=== PATIENT | female | born 1935 | race Caucasian/White ===

== ENCOUNTER 2018-02-27 15:54 | Inpatient (IN) | payer MEDICARE, OTHER ==
[~2018-02-27] VITALS: Ht 154.9 cm; Wt 55.0 kg
[2018-02-27] MEDS ORDERED: normal saline 1000ML IV soln IVB ONE (16:20)
[2018-02-27 16:34] LABS: BASOPHILS # (AUTO) 0.1 X10'3 (0-0.2); BASOPHILS % (AUTO) 0.8 % (0-1); EOSINOPHILS # (AUTO) 0.1 X10'3 (0-0.9); HEMATOCRIT 32.5 % (35.0-45.0); HEMOGLOBIN 11.1 g/dl (12.0-16.0); LYMPHOCYTES # (AUTO) 1.4 X10'3 (1.1-4.8); LYMPHOCYTES % (AUTO) 13.1 % (21-51); MEAN CORPUSCULAR HEMOGLOBIN 31.6 PG (27.0-31.0); MEAN CORPUSCULAR HGB CONC 34.1 % (33.0-36.5); MEAN CORPUSCULAR VOLUME 92.6 FL (78-98); MEAN PLATELET VOLUME 7.7 FL (7.4-10.4); MONOCYTES # (AUTO) 0.6 X10'3 (0-0.9); MONOCYTES % (AUTO) 5.7 % (2-12); NEUTROPHILS # (AUTO) 8.5 X10'3 (1.8-7.7); NEUTROPHILS % (AUTO) 79.4 % (42-75); PLATELET COUNT 305 X10'3 (140-440); RED BLOOD COUNT 3.51 X10'6 (4.20-5.60); RED CELL DISTRIBUTION WIDTH 13.5 % (11.5-14.5); WHITE BLOOD COUNT 10.8 X10'3 (4.5-11.0)
[2018-02-27 16:46] LABS: ALANINE AMINOTRANSFERASE 26 U/L (12-78); ALBUMIN 3.4 G/DL (3.4-5.0); ALBUMIN/GLOBULIN RATIO 0.9 (1.1-1.5); ALKALINE PHOSPHATASE 71 IU/L (46-116); ANION GAP 10 (8-16); ASPARTATE AMINO TRANSFERASE 18 U/L (10-37); BILIRUBIN,TOTAL 0.5 MG/DL (0.1-1.0); BLOOD UREA NITROGEN 20 MG/DL (7-18); BUN/CREATININE RATIO 17.2 (6.6-38.0); CALCIUM 9.6 MG/DL (8.5-10.1); CHLORIDE 98 MMOL/L (99-107); CREATININE 1.16 MG/DL (0.40-0.90); GLUCOSE 98 MG/DL (70-104); LIPASE < 50 U/L (73-393); POTASSIUM 3.7 MMOL/L (3.5-5.1); SODIUM 136 MMOL/L (135-145); TOTAL CARBON DIOXIDE 28.4 MMOL/L (24-32); TOTAL PROTEIN 7.2 G/DL (6.4-8.2); eGFR 45 ML/MIN
[2018-02-27 17:23] LABS: CLARITY,URINE CLEAR (Clear); COLOR,URINE YELLOW (Yellow); GLUCOSE, URINE NEGATIVE (Neg); KETONES,URINE 15 mg/dl (Neg); LEUKOCYTE ESTERASE ,URINE NEGATIVE (Neg); NITRITES, URINE NEGATIVE (Neg); OCCULT BLOOD,URINE MODERATE (Neg); PROTEIN,URINE 30 mg/dl (Neg)
[2018-02-27 17:24] LABS: UA COLLECTION TYPE STRAIGHT CATH
[2018-02-27 17:30] LABS: MUCUS STRANDS FEW /LPF (Neg); SQUAMOUS EPITHELIAL CELL,UR FEW /LPF (FEW); WBC CLUMPS,URINE FEW /HPF (NEGATIVE)
[2018-02-27 17:31] LABS: BACTERIA,URINE 1+ /HPF (Neg)
[2018-02-27] MEDS ORDERED: XAL0.005OS OP (18:45)
[2018-02-27] MEDS ORDERED: HYDR-3973 PO (18:45)
[2018-02-27] MEDS ORDERED: ondansetron/PF 4mg/2ml inj IV PRN (20:20)
[2018-02-27] MEDS: normal saline 1000ml 1,000 ML IV SCH ×2 (20:33→21:11)
[2018-02-27 20:50] VITALS: BP 194/85
[2018-02-27] MEDS: latanoprost 0.005% 2.5ml ophthalmic drops EACHEYE SCH (21:00)
[2018-02-27] MEDS: morphine 4 MG/ML inj SYRINge IV PRN (21:26)
[2018-02-28] VITALS (22 sets, daily range): BP systolic 121–198; BP diastolic 62–102
[2018-02-28] MEDS: morphine 4 MG/ML inj SYRINge IV PRN (02:41)
[2018-02-28 05:49] LABS: BASOPHILS % (AUTO) 0.2 % (0-1); EOSINOPHILS # (AUTO) 0.2 X10'3 (0-0.9); EOSINOPHILS % (AUTO) 2.2 % (0-6); HEMOGLOBIN 10.6 g/dl (12.0-16.0); LYMPHOCYTES # (AUTO) 1.2 X10'3 (1.1-4.8); LYMPHOCYTES % (AUTO) 12.4 % (21-51); MEAN CORPUSCULAR HEMOGLOBIN 31.7 PG (27.0-31.0); MEAN CORPUSCULAR VOLUME 93.2 FL (78-98); MEAN PLATELET VOLUME 8.3 FL (7.4-10.4); MONOCYTES # (AUTO) 0.6 X10'3 (0-0.9); MONOCYTES % (AUTO) 6.9 % (2-12); NEUTROPHILS # (AUTO) 7.3 X10'3 (1.8-7.7); NEUTROPHILS % (AUTO) 78.3 % (42-75); PLATELET COUNT 264 X10'3 (140-440); RED BLOOD COUNT 3.33 X10'6 (4.20-5.60); RED CELL DISTRIBUTION WIDTH 13.4 % (11.5-14.5); WHITE BLOOD COUNT 9.4 X10'3 (4.5-11.0)
[2018-02-28 06:01] LABS: PRE OP PARTIAL THROMB. TIME 27 SECONDS (22-35)
[2018-02-28 06:15] LABS: ALANINE AMINOTRANSFERASE 21 U/L (12-78); ALBUMIN/GLOBULIN RATIO 0.9 (1.1-1.5); ALKALINE PHOSPHATASE 67 IU/L (46-116); ANION GAP 12 (8-16); ASPARTATE AMINO TRANSFERASE 16 U/L (10-37); BILIRUBIN,TOTAL 0.6 MG/DL (0.1-1.0); BLOOD UREA NITROGEN 15 MG/DL (7-18); BUN/CREATININE RATIO 16.3 (6.6-38.0); CALCIUM 8.1 MG/DL (8.5-10.1); CHLORIDE 103 MMOL/L (99-107); CREATININE 0.92 MG/DL (0.40-0.90); GLUCOSE 80 MG/DL (70-104); POTASSIUM 3.1 MMOL/L (3.5-5.1); SODIUM 139 MMOL/L (135-145); TOTAL CARBON DIOXIDE 24.5 MMOL/L (24-32); TOTAL PROTEIN 6.3 G/DL (6.4-8.2); eGFR 58 ML/MIN
[2018-02-28] MEDS ORDERED: magnesium 4gm in 100ml NS 100 ML IV PRN (06:45)
[2018-02-28] MEDS ORDERED: potassium Cl 40MEQ/NS 500ml 500 ML IV PRN ×2 (06:45)
[2018-02-28] MEDS ORDERED: magnesium Cl slow-release 64mg tablet PO PRN (06:45)
[2018-02-28] MEDS ORDERED: potassium Cl 20 mEq SR tablet PO PRN ×2 (06:45)
[2018-02-28] MEDS ORDERED: magnesium 1gm/100ml D5W IVPB 100 ML IV PRN (06:45)
[2018-02-28 06:52] LABS: PROTHROMBIN TIME 10.8 SECONDS (9.0-12.0)
[2018-02-28] MEDS: normal saline 1000ml 1,000 ML IV SCH (08:11)
[2018-02-28] MEDS ORDERED: ringers solution, lacted 1,000 ML IV SCH (13:21)
[2018-02-28] MEDS ORDERED: morphine 4 MG/ML inj SYRINge IV PRN ×2 (13:25)
[2018-02-28] MEDS ORDERED: meperidine/PF 25mg/ml syringe IV PRN ×3 (13:25)
[2018-02-28] MEDS ORDERED: proCHLORperazine 10 MG/2 ml inj IV PRN (13:25)
[2018-02-28] MEDS ORDERED: ondansetron/PF 4mg/2ml inj IV PRN (13:25)
[2018-02-28] MEDS ORDERED: aprepitant 40mg capsule PO ONE (15:50)
[2018-02-28] MEDS ORDERED: fentaNYL/PF 50MCG/1 ML 2ML syringe ONE (16:03)
[2018-02-28] MEDS ORDERED: midazolam 2 mg/2 ml injection ONE (16:03)
[2018-02-28] MEDS ORDERED: glycopyrrolate 0.2mg/ml inj ONE (16:07)
[2018-02-28] MEDS ORDERED: desflurane 240ml liquid inh. IH ONE (16:07)
[2018-02-28] MEDS ORDERED: metoprolol tartrate 1mg/ml inj IV ONE (16:07)
[2018-02-28] MEDS ORDERED: ondansetron/PF 4mg/2ml inj ONE (16:07)
[2018-02-28] MEDS ORDERED: dexamethasone sod phosphate 10mg/ml inj ONE (16:07)
[2018-02-28] MEDS ORDERED: neostigmine methylsulfate 1 MG/ML 10ml vial ONE (16:07)
[2018-02-28] MEDS ORDERED: propofol inj 20 ML IV ONE (16:15)
[2018-02-28] MEDS ORDERED: LIDOcaine 2% (20mg/ml) 5ml vial ONE (16:15)
[2018-02-28] MEDS ORDERED: meperidine/PF 50mg/ml syringe ONE (17:02)
[2018-02-28] MEDS ORDERED: enalaprilat dihydrate 2.5mg/2ml vial IV PRN (17:15)
[2018-02-28] MEDS ORDERED: ketorolac trometh. 30mg/ml inj. IV ONE (17:15)
[2018-02-28] MEDS ORDERED: labetalol 20mg/4ml (5mg/ml) syringe IV PRN (17:15)
[2018-02-28] MEDS ORDERED: labetalol 5mg/ml 20ml inj. IV PRN (17:20)
[2018-02-28] MEDS ORDERED: HYDROcodone/acetaminophen 10/325mg tab PO PRN (18:15)
[2018-02-28] MEDS: latanoprost 0.005% 2.5ml ophthalmic drops EACHEYE SCH (21:14)
[2018-03-01] VITALS: BP 146/82
[2018-03-01] MEDS: normal saline 1000ml 1,000 ML IV SCH ×3 (01:31→20:38)
[2018-03-01 04:44] LABS: BASOPHILS % (AUTO) 0 % (0-1); EOSINOPHILS # (AUTO) 0.2 X10'3 (0-0.9); EOSINOPHILS % (AUTO) 1.2 % (0-6); HEMATOCRIT 33.3 % (35.0-45.0); HEMOGLOBIN 11.2 g/dl (12.0-16.0); LYMPHOCYTES # (AUTO) 0.4 X10'3 (1.1-4.8); LYMPHOCYTES % (AUTO) 2.7 % (21-51); MEAN CORPUSCULAR HEMOGLOBIN 31.4 PG (27.0-31.0); MEAN CORPUSCULAR HGB CONC 33.6 % (33.0-36.5); MEAN CORPUSCULAR VOLUME 93.6 FL (78-98); MONOCYTES # (AUTO) 0.4 X10'3 (0-0.9); MONOCYTES % (AUTO) 3.2 % (2-12); NEUTROPHILS # (AUTO) 12.6 X10'3 (1.8-7.7); NEUTROPHILS % (AUTO) 92.9 % (42-75); PLATELET COUNT 262 X10'3 (140-440); RED BLOOD COUNT 3.56 X10'6 (4.20-5.60); RED CELL DISTRIBUTION WIDTH 13.4 % (11.5-14.5); WHITE BLOOD COUNT 13.6 X10'3 (4.5-11.0)
[2018-03-01 05:02] LABS: ALANINE AMINOTRANSFERASE 18 U/L (12-78); ALBUMIN 2.9 G/DL (3.4-5.0); ALBUMIN/GLOBULIN RATIO 0.8 (1.1-1.5); ALKALINE PHOSPHATASE 67 IU/L (46-116); ANION GAP 14 (8-16); ASPARTATE AMINO TRANSFERASE 17 U/L (10-37); BILIRUBIN,TOTAL 0.6 MG/DL (0.1-1.0); BLOOD UREA NITROGEN 21 MG/DL (7-18); BUN/CREATININE RATIO 21.6 (6.6-38.0); CALCIUM 8.6 MG/DL (8.5-10.1); CHLORIDE 102 MMOL/L (99-107); CREATININE 0.97 MG/DL (0.40-0.90); GLUCOSE 119 MG/DL (70-104); MAGNESIUM 1.7 MG/DL (1.5-2.4); POTASSIUM 3.8 MMOL/L (3.5-5.1); SODIUM 137 MMOL/L (135-145); TOTAL CARBON DIOXIDE 21.2 MMOL/L (24-32); TOTAL PROTEIN 6.6 G/DL (6.4-8.2); eGFR 55 ML/MIN
[2018-03-01 07:00] VITALS: BP 113/56
[2018-03-01 11:00] VITALS: BP 110/84
[2018-03-01 20:00] VITALS: BP 124/52
[2018-03-01] MEDS: latanoprost 0.005% 2.5ml ophthalmic drops EACHEYE SCH (20:34)
[2018-03-02] VITALS: BP 141/71
[2018-03-02] MEDS: normal saline 1000ml 1,000 ML IV SCH (05:27)
[2018-03-02 05:54] LABS: ALANINE AMINOTRANSFERASE 21 U/L (12-78); ALBUMIN 2.7 G/DL (3.4-5.0); ALBUMIN/GLOBULIN RATIO 0.8 (1.1-1.5); ALKALINE PHOSPHATASE 61 IU/L (46-116); ANION GAP 8 (8-16); ASPARTATE AMINO TRANSFERASE 15 U/L (10-37); BILIRUBIN,TOTAL 0.4 MG/DL (0.1-1.0); BLOOD UREA NITROGEN 25 MG/DL (7-18); CALCIUM 8.3 MG/DL (8.5-10.1); CHLORIDE 104 MMOL/L (99-107); CREATININE 0.96 MG/DL (0.40-0.90); GLUCOSE 114 MG/DL (70-104); MAGNESIUM 1.7 MG/DL (1.5-2.4); POTASSIUM 4.1 MMOL/L (3.5-5.1); SODIUM 137 MMOL/L (135-145); TOTAL CARBON DIOXIDE 24.9 MMOL/L (24-32); TOTAL PROTEIN 6.1 G/DL (6.4-8.2); eGFR 55 ML/MIN
[2018-03-02 06:46] LABS: HEMATOCRIT 32.3 % (35.0-45.0); HEMOGLOBIN 10.7 g/dl (12.0-16.0); LYMPHOCYTES % (AUTO) 5.8 % (21-51); MEAN CORPUSCULAR HEMOGLOBIN 31.2 PG (27.0-31.0); MEAN CORPUSCULAR HGB CONC 33.2 % (33.0-36.5); MEAN PLATELET VOLUME 8.4 FL (7.4-10.4); MONOCYTES % (AUTO) 4.6 % (2-12); NEUTROPHILS % (AUTO) 89.6 % (42-75); PLATELET COUNT 308 X10'3 (140-440); RED BLOOD COUNT 3.43 X10'6 (4.20-5.60); RED CELL DISTRIBUTION WIDTH 13.6 % (11.5-14.5); WHITE BLOOD COUNT 13.7 X10'3 (4.5-11.0)
[2018-03-02 06:47] LABS: BASOPHILS % (AUTO) 0 % (0-1); EOSINOPHILS % (AUTO) 0 % (0-6); LYMPHOCYTES # (AUTO) 0.8 X10'3 (1.1-4.8); MONOCYTES # (AUTO) 0.6 X10'3 (0-0.9); NEUTROPHILS # (AUTO) 12.3 X10'3 (1.8-7.7)
[2018-03-02 07:00] VITALS: BP 173/82
[2018-03-02 08:23] VITALS: BP 132/85
[2018-03-02 11:00] VITALS: BP 129/63
== END 2018-03-02 17:33 | disposition home health service (06) | DRG 330 ==
LOC: ER 15:56 → SUR 3N 21:00 → CMPBEDREQ 21:12 → SUR 3N 02-28 11:41 → PACU 02-28 15:10 → SUR 3N 02-28 18:53
PROVIDERS: ADMIT Internal Medicine; ATTEND Family Medicine
PROC: 0D1A0Z4 Bypass Jejunum to Cutaneous, Open Approach (ICD-10-PCS; principal; 2018-02-28 16:07)
DX: K56.609 Unspecified intestinal obstruction, unspecified as to partial versus complete obstruction (principal); C48.0 Malignant neoplasm of retroperitoneum; M19.90 Unspecified osteoarthritis, unspecified site; H40.9 Unspecified glaucoma; J44.9 Chronic obstructive pulmonary disease, unspecified; Z90.5 Acquired absence of kidney; Z90.710 Acquired absence of both cervix and uterus; Z88.1 Allergy status to other antibiotic agents; Z88.2 Allergy status to sulfonamides; Z87.891 Personal history of nicotine dependence; Z85.528 Personal history of other malignant neoplasm of kidney
CPT/HCPCS: 36415; 71045; 74176; 80053; 81001; 83690; 83735; 85025; 85610; 85730; 86885; 86900; 86901; 87070; 87088; 93005; 96360; 99285; A4421; A6257; A6446; A6449; A7000; J1100; J1885; J2001; J2175; J2250; J2270; J2405; J2704; J2710; J3010; J3480; J3490; J7030; J7120; J8501